=== PATIENT | female | born 1985 | race Hispanic/Latino ===

== ENCOUNTER 2022-05-04 20:29 | Emergency (ER) | payer SELFPAY ==
[~2022-05-04] VITALS: Ht 167.6 cm; Wt 81.0 kg
[2022-05-04 20:38] VITALS: BP 129/81
[2022-05-04 21:01] VITALS: BP 132/85
[2022-05-04] MEDS ORDERED: LORTAB 1010 MG PO (21:06)
[2022-05-04] MEDS ORDERED: AMOX/K CLAV875 M1 PO (21:06)
[2022-05-04] MEDS ORDERED: FLOXIN OTIC0.3 % AS (21:06)
[2022-05-04 21:17] VITALS: BP 132/85
== END 2022-05-04 21:30 | disposition home or self-care (01) | DRG 153 ==
LOC: ED 20:29
DX: H66.92 Otitis media, unspecified, left ear (principal)

== ENCOUNTER 2022-05-19 22:01 | Emergency (ER) | payer SELFPAY ==
[~2022-05-19] VITALS: Ht 167.6 cm; Wt 81.0 kg
[~2022-05-19 22:01] MED LIST: AMOX/K CLAV875 M1 PO; FLOXIN OTIC0.3 % AS; LORTAB 1010 MG PO
[2022-05-19 22:40] VITALS: BP 138/72
[2022-05-19 23:31] LABS: URINE BILIRUBIN - DIPSTICK NEGATIVE (NEGATIVE); URINE BLOOD DIPSTICK TRACE-INTACT (NEGATIVE); URINE COLOR YELLOW; URINE GLUCOSE - DIPSTICK NEGATIVE (NEGATIVE); URINE KETONE NEGATIVE (NEGATIVE); URINE LEUK ESTERASE NEGATIVE (NEGATIVE); URINE PROTEIN - DIPSTICK NEGATIVE (NEG-TRACE)
[2022-05-19 23:45] LABS: URINE NITRITE - DIPSTICK NEGATIVE (Negative)
[2022-05-20] MEDS ORDERED: METRONIDAZOLE500 MG PO (00:26)
[2022-05-20] MEDS ORDERED: MONISTAT1 VA (00:26)
== END 2022-05-20 01:11 | disposition home or self-care (01) | DRG 759 ==
LOC: ED 22:01
PROVIDERS: Emergency Medicine
DX: N76.0 Acute vaginitis (principal)

== ENCOUNTER 2022-07-21 00:57 | Emergency (ER) | payer SELFPAY ==
[~2022-07-21] VITALS: Ht 167.6 cm; Wt 81.8 kg
[~2022-07-21 00:57] MED LIST changes: +METRONIDAZOLE500 MG PO; +MONISTAT1 VA
[2022-07-21 01:03] VITALS: BP 147/87
[2022-07-21 01:16] VITALS: BP 129/77
[2022-07-21 01:29] LABS: BASO% 0.1 % (0-3); EOS% 0.9 % (0-8); HEMATOCRIT 39.8 % (37.0-47.0); HEMOGLOBIN 13.1 g/dl (12.0-16.0); IMMATURE GRANULOCYTES 0.2 % (0.0-5.0); LYMPH% 11.4 % (15-41); MEAN CELL VOLUME 90.2 fL CALC (80.0-100.0); MEAN CORPUSCULAR HGB 29.7 pG CALC (26.0-32.0); MEAN CORPUSCULAR HGB CONC 32.9 g/dL CAL (32.0-36.0); MONO% 6.1 % (2-13); NEUT# 12.06 thou/uL (2.00-7.15); NEUT% 81.3 % (42-76); RED BLOOD COUNT 4.41 mill/uL (4.20-5.60); RED CELL DISTRI WIDTH 12.2 % (11.5-15.5)
[2022-07-21 01:30] VITALS: BP 126/75
[2022-07-21 01:43] LABS: ALBUMIN 4.1 g/dL (3.2-5.0); ALKALINE PHOSPHATASE 82 u/l (38-126); BILIRUBIN, TOTAL 0.4 mg/dL (0.02-1.3); BUN 11 mg/dL (7-17); BUN/CREATININE RATIO 24 (12-20 (CALC)); CARBON DIOXIDE 26 mmol/l (22-30); CHLORIDE 106 mmol/l (95-108); CREATININE 0.4 mg/dL (0.5-1.0); GFR FOR AFR.AMER. > 60 ML/MIN (>=60 (CALC)); GFR OTHER RACES > 60 ML/MIN (>=60 (CALC)); SGOT/AST 28 u/l (14-36); SODIUM 137 mmol/l (137-146); TOTAL PROTEIN 7.7 g/dL (6.3-8.2)
[2022-07-21 01:45] VITALS: BP 123/80
[2022-07-21 01:45] LABS: ANION GAP 9 (6-22 (CALC)); POTASSIUM 3.7 mmol/l (3.5-5.1)
[2022-07-21] MEDS ORDERED: VIBRAMYCIN100 M2 PO (04:04)
[2022-07-21] MEDS ORDERED: VOLTAREN75 MG PO (04:04)
[2022-07-21 04:16] VITALS: BP 123/80
== END 2022-07-21 04:29 | disposition home or self-care (01) | DRG 203 ==
LOC: ED 00:57
PROVIDERS: Family Medicine
DX: J20.9 Acute bronchitis, unspecified (principal); R07.89 Other chest pain; Z20.822 Contact with and (suspected) exposure to COVID-19